=== PATIENT | male | born 1965 | race Caucasian/White ===

== ENCOUNTER 2021-06-10 15:37 | Outpatient (CLI) | payer MEDICAID, SELFPAY ==
--- NOTE | 2021-06-10 15:44 | XR_ITS ---
WS: [id number] Lumbar spine, AP, both obliques, L5-S1 spot, lateral views in flexion, extension and neutral position , 06/10/2021 Clinical Data: M54.41 - Lumbago with sciatica, right side Comparison: None. Findings: There is degenerative arthritic change of all the lumbar vertebral bodies L1-L5 with accompanying dis c space narrowing. There is a dextroscoliosis of the lower lumbar spine. The transverse processes and SI joints are normal. On the oblique films no spondylolysis seen. On fle xion and extension there is limitation of motion but no subluxation. No compression fractures are see n. There are clips in the right upper quadrant from cholecystectomy. There is a large amount of fecal material throughout the colon. XR/XR lumbar spine 6V w f/e [id number] Impression: 1. Degenerative arthritis of the lumbar vertebral bodies L1-L5 with disc narrow ing at all levels. 2. Dextroscoliosis. 3. On flexion and extension there is limitation of motion but no subluxation.
== END 2021-06-10 15:38 | disposition home or self-care (01) ==
LOC: RAD 15:41
PROVIDERS: PCP Family Medicine; Visit Provider Family Medicine
DX: M54.41 Lumbago with sciatica, right side (principal); G89.29 Other chronic pain; M47.816 Spondylosis without myelopathy or radiculopathy, lumbar region
CPT/HCPCS: 72114

== ENCOUNTER 2021-08-05 20:00 | Outpatient (CLI) | payer MEDICAID, SELFPAY | END 2021-08-05 20:01 | disposition home or self-care (01) | LOC: SLEEP 08-06 08:41 | PROVIDERS: PCP Family Medicine; Visit Provider Family Medicine | DX: G47.30 Sleep apnea, unspecified (principal) | CPT/HCPCS: 95810 ==

== ENCOUNTER 2021-08-13 06:43 | Outpatient (CLI) | payer MEDICAID, SELFPAY ==
--- NOTE | 2021-08-13 07:01 | MR_ITS ---
WS: [id number] MRI LUMBAR SPINE NONCONTRAST HISTORY: chronic low back pain COMPARISON: Radiograph 06/10/2021 TECHNIQUE: Sagittal and axial multisequence imaging is submitted. Degenerative RIGHT curvature lumbar spine. Mild straightening of the normal lordosis. Reactive marrow edema at the endplates throughout the lumbar spine but most significant at L3-4. Disc spaces are markedly narrowed and degenerated. Osteophytes with loss of disc space height. No fra cture. Conus terminates normally at L1-2 disc level. L1-L2: Mild annular disc bulging and osteophytic ridging. RIGHT facet joint arthritis and ligamentum flavum hypertrophy. No significant stenosis. L2-L3: Moderate annular disc bulging and osteophytic ridging. Mild ligamentum flavum hypertrophy and facet arthritis. RIGHT foraminal disc protrusion. Factors are resulting in mild central and LEFT fora melina stenosis. Moderate RIGHT subarticular and foraminal stenosis. L3-L4: Diffuse asymmetric disc bulging and osteophytic ridging extending greatest to the RIGHT. Moder ate facet joint arthritis and ligamentum flavum hypertrophy, LEFT greater than RIGHT. Mild central st enosis and bilateral foraminal stenosis. Moderate LEFT subarticular recess stenosis. L4-L5: Diffuse annular disc bulging and osteophytic ridging with facet and ligamentum flavum arthriti s. Small amount of fluid in the RIGHT facet joint. Mild central stenosis. There is mild encroachment into the subarticular recesses and moderate proximal LEFT foraminal stenosis. L5-S1: Mild facet joint arthritis. Small facet joint cyst on the LEFT. MR/MR lumbar spine wo con* [id number] IMPRESSION: 1. Severe degenerative disc disease and facet arthritis throughout the lumbar spine most significant at L3-4 and L4-5. 2. Mild RIGHT curvature lumbar spine. 3. Mild central and LEFT foraminal stenosis with moderate RIGHT subarticular a nd foraminal stenosis at L2-3. Moderate encroachment and deformity of the trave rsing L3 nerve root. 4. Moderate LEFT subarticular recess stenosis at L3-4 with mild central and bi lateral foraminal stenosis. Disc osteophyte encroachment upon the traversing LE FT L4 nerve root. 5. Moderate LEFT foraminal stenosis at L4-5 due to disc and osteophyte and fac et disease.
== END 2021-08-13 06:44 | disposition home or self-care (01) ==
LOC: RAD 06:44
PROVIDERS: PCP Family Medicine; Visit Provider Family Medicine
DX: M51.36 Other intervertebral disc degeneration, lumbar region (principal); M47.816 Spondylosis without myelopathy or radiculopathy, lumbar region; M48.061 Spinal stenosis, lumbar region without neurogenic claudication; M25.78 Osteophyte, vertebrae
CPT/HCPCS: 72148

== ENCOUNTER → 2021-08-20 13:29 | Outpatient (BNVA) | payer MEDICAID, SELFPAY | PROVIDERS: PCP Family Medicine; Referring Provider Family Medicine; Visit Provider Physician Assistant | DX: M47.816 Spondylosis without myelopathy or radiculopathy, lumbar region (principal); M51.36 Other intervertebral disc degeneration, lumbar region | CPT/HCPCS: 99214; 99999 ==

== ENCOUNTER → 2021-09-01 08:44 | Outpatient (BNVA) | payer MEDICAID, SELFPAY | PROVIDERS: PCP Family Medicine; Referring Provider Physician Assistant; Visit Provider Anesthesiology Pain Medicine | DX: G89.29 Other chronic pain (principal); M54.41 Lumbago with sciatica, right side; M51.36 Other intervertebral disc degeneration, lumbar region; M47.816 Spondylosis without myelopathy or radiculopathy, lumbar region; M54.2 Cervicalgia; M79.604 Pain in right leg; M79.605 Pain in left leg; F17.200 Nicotine dependence, unspecified, uncomplicated | CPT/HCPCS: 72050; 99205; 99213; 99999 ==

== ENCOUNTER 2021-09-03 09:29 | Outpatient (RCR) | payer MEDICAID, SELFPAY | END 2021-09-22 23:59 | disposition home or self-care (01) | LOC: SPT 09:29 | PROVIDERS: PCP Family Medicine; Referring Provider Physician Assistant; Visit Provider Physician Assistant | DX: G89.29 Other chronic pain (principal); M54.50 Low back pain, unspecified | CPT/HCPCS: 97161 ==

== ENCOUNTER 2021-09-14 10:48 | Outpatient (CLI) | payer MEDICAID, SELFPAY | END 2021-09-14 10:49 | disposition home or self-care (01) | LOC: HCSOACUTE 11:00 → RT 11:05 | PROVIDERS: PCP Family Medicine; Visit Provider Specialist | DX: H90.12 Conductive hearing loss, unilateral, left ear, with unrestricted hearing on the contralateral side (principal); R00.1 Bradycardia, unspecified | CPT/HCPCS: 93005 ==

== ENCOUNTER 2021-09-23 06:00 | Outpatient (RCR) | payer MEDICAID, SELFPAY | END 2021-10-22 23:59 | disposition home or self-care (01) | LOC: SPT 06:00 | PROVIDERS: PCP Family Medicine; Referring Provider Physician Assistant; Visit Provider Physician Assistant | DX: M54.50 Low back pain, unspecified (principal); G89.29 Other chronic pain | CPT/HCPCS: 97032; 97110; G0283 ==

== ENCOUNTER → 2021-09-24 14:12 | Outpatient (BNVA) | payer MEDICAID, SELFPAY | PROVIDERS: PCP Family Medicine; Visit Provider Anesthesiology Pain Medicine | DX: G89.29 Other chronic pain (principal); M51.36 Other intervertebral disc degeneration, lumbar region; M54.41 Lumbago with sciatica, right side; M79.604 Pain in right leg; M79.605 Pain in left leg | CPT/HCPCS: 64493; 64494; 64495; J3490 ==

== ENCOUNTER 2021-09-29 06:26 | Day surgery (SDC) | payer MEDICAID, SELFPAY ==
[2021-09-28 13:33] VITALS: BMI 22.4
[2021-09-29] VITALS (7 sets, daily range): BP systolic 106–122; BP diastolic 64–82; PULSE 63–70; RESP 16; TEMP 36.2–36.6; O2SAT 92–99
[2021-09-29] MEDS: sodium chloride 0.9% 1,000 ML 30 ML IV (07:16)
--- NOTE | 2021-09-29 08:09 | ANES.PREANE2 ---
Pre-Anesthetic Assessment Height/Weight: Height 1.78 m Weight 70.76 kg Temp Pulse Resp BP Pulse Ox 97.9 F 69 16 106/64 95 09/29/21 06:40 09/29/21 06:40 09/29/21 06:40 09/29/21 06:40 09/29/21 06:40 Preop Diagnosis: hearing loss Operation Date: 09/29/21 08:05 Proposed Procedures p Baha Implant [id number](Left) - Hans Sorto MD Familial anesthetic complications: Per patient he has hx of waking up emotionally labile and agitated Was Beta Anderson taken within 24 hours: N/A Was Clonidine taken within 24 hours: N/A Last intake: Intake Last Liquid Date 09/28/21 Last Liquid Time 22:00 Last Solid Date 09/28/21 Last Solid Time 19:00 Social Tobacco Exam alert, oriented x 3 and regular rate & rhythm b/l lung sounds diminished Airway Submandibular: within normal limits Cervical ROM: within normal limits Mallampati: Class II Comments: Comments: left upper central incisior chipped/missing filling Pulmonary Asthma and Sleep Apnea (does not wear mask, fit study pending ) CV/HEM None reported METS > 4 None reported Hepatic None reported Metabolic None reported Musc/skel Lower Back Pain and Osteoarthritis/DJD Neuropsych None reported Anesthetic Plan ASA status: 3 (56 year old male smoker with SHAHNAZ untreated ) Anesthesia: Anesthesia Evaluation and General Other: We discussed risk and benefits of general anesthesia including PONV, sore throat (sometimes severe), corneal abrasion, positioning and peripheral nerve injuries, life threatening allergic reaction, post operative ICU admission requiring prolonged intubation, stroke, heart attack, , and rare incidences of recall. Patient consents to proceed with general anesthesia. Risk of > 500 ml blood loss (7ml/kg in children): No Medications/Allergies Home Medications Medication Instructions Recorded Confirmed Last Taken Type albuterol sulfate 90 mcg/actuation 2 puff INHALATION QID PRN #8.5 g 05/20/21 09/29/21 Unknown Rx aerosol inhaler (Ventolin HFA) glycopyrrolate 9 mcg-formoterol 2 puff INHALATION BID #10.7 g 05/20/21 09/29/21 09/29/21 Rx 4.8 mcg HFA aerosol inhaler (Bevespi Aerosphere) acetaminophen 500 mg tablet 500 mg PO Q6H PRN 09/01/21 09/29/21 09/28/21 History (Tylenol Extra Strength) ibuprofen 200 mg tablet 200 mg PO Q6H PRN 09/01/21 09/29/21 09/27/21 History gabapentin 300 mg capsule See Rx Instructions .ROUTE 09/04/21 09/29/21 09/28/21 Rx .COMPLEX #90 cap MULLIEN 1 tab PO DAILY 09/24/21 09/27/21 History baclofen 10 mg tablet See Rx Instructions .ROUTE 09/24/21 09/29/21 09/28/21 Rx .COMPLEX #30 tab Allergies Allergy/AdvReac Type Severity Reaction Status Date / Time iodine Allergy Unknown Unknown Verified 09/28/21 13:29 morphine Allergy Unknown Unknown Verified 09/28/21 13:29 amoxicillin [From Augmentin] Allergy ALGY-Rash Verified 09/29/21 06:48 aspirin Allergy Unknown Verified 09/29/21 06:48 clavulanic acid Allergy ALGY-Rash Verified 09/29/21 06:48 [From Augmentin] Current Medications Generic Name Dose Route Start Last Admin Trade Name Freq PRN Reason Stop Dose Admin Sodium Chloride 1,000 mls @ 30 mls/hr 09/29/21 06:45 09/29/21 07:16 Sodium Chloride 0.9% IV 09/30/21 06:44 30 mls/hr .Q24H DANIELLE Administration PFSH Anesthesia Medical History Asthma Chronic back pain greater than 3 months duration Social History Smoking and tobacco status: current every day smoker Data Anesthesia Cardiac Studies: No Data to Display
--- NOTE | 2021-09-29 08:34 | W.PM.OPSUD ---
Surgery/Procedure H&P Update DATE OF PROCEDURE: September 29, 2021 DATE H&P PERFORMED: 09/14/21 PREOP DIAGNOSIS: hearing loss PRIMARY INDICATION FOR PROCEDURE: Conductive hearing loss, left ear PLANNED PROCEDURE: Operation Date: 09/29/21 08:05 Proposed Procedures p Baha Implant [id number](Left) - Hans Sorto MD
[2021-09-29] MEDS: neomycin-poly-bacitracin oint 28 gm 1 APPLIC TOPICAL (09:16)
--- NOTE | 2021-09-29 09:38 | P.OP_ITS ---
Operative Report Date of procedure: September 29, 2021 Pre-op diagnosis: Preop Diagnosis hearing loss Post-op diagnosis: same Post-op findings: Normal left mastoid exam Procedure done: Left bone anchored hearing aid abutment placement Implants: Left bone anchored hearing aid abutment/fixture mount Specimens removed/disposition: None Pathology: none sent Surgeon: Hans Sorto Foreign Service Teacher: Nilesh Pinto Anesthesia: General Estimated blood loss (mL): 2 IV fluids (mL): 800 Complications: None Findings: Normal left mastoid exam Condition: stable Disposition: PACU Brief History: 56 yo wm with a h/o severe conductive hearing loss in the left ear who desires surgical therapy. Procedure: The patient was identified preoperatively and was taken to the operating where h e was placed on the operating table in the supine position. Anesthesia was obtained with general endotracheal anesthesia and the table was then turned 90 degrees to patient's left. The patient's head was turned to the right, and he was prepped and draped on the left in the usual sterile fashion. Prior to prepping the patient, the patient's left postauricular hair was shaved. Once prepped, the surgical indicator was used to edie the left postauricular surgical site. A needle was then used to measure the skin thickness at the implant site, and then the surgical site was injected with 2 cc of 1% lidocaine with 1-100,000 epinephrine. A punch biopsy tool was then used to remove 5 mm wrangell of tissue at the implant site and hemostasis was achieved with electrocautery. The raspatorium and surgical microscope was used to remove the periosteum from the mastoid cortex over the implant site. At this point using the high-speed drill, a 4 mm hole was used to drill into the outer cortex of the left mastoid bone while copiously irrigating the drill. The depth of the hole was inspected and then the implant was placed with the drill set at 20 N centimeters. Once the implant was in the appropriate site, it was hand tightened, and then a dressing was placed over the wound with triple antibiotic ointment over the implant. At this point the procedure was terminated and control of the patient was returned to anesthesia where he underwent an uneventful reversal of anesthesia and extubation and was taken to the recovery room in stable condition. There were no operative or anesthetic complications.
--- NOTE | 2021-09-29 14:34 | ANE.PACU2 ---
Inpatient post-anesthesia follow up: Airway intact: Yes Vital signs: Temperature 97.2 F Pulse Rate 63 Respiratory Rate 16 Blood Pressure 115/75 Pulse Oximetry 96 Oxygen Delivery Me thod Room Air Oxygen Flow Rate 6 Fraction of Inspir ed Oxygen Hydration adequate: Yes Nausea and vomiting: No Pain level: 1 Mental status: Baseline
== END 2021-09-29 10:30 | disposition home or self-care (01) ==
PROVIDERS: PCP Family Medicine; Visit Provider Specialist
PROC: (CPT 69710; principal; 2021-09-29 07:55)
DX: H91.92 Unspecified hearing loss, left ear (principal); F17.210 Nicotine dependence, cigarettes, uncomplicated; G47.33 Obstructive sleep apnea (adult) (pediatric)
CPT/HCPCS: 69714; 12345; J1100; J2405; J2704; J3010; J3490; J7030

== ENCOUNTER → 2021-10-01 08:13 | Outpatient (BNVA) | payer MEDICAID, SELFPAY | PROVIDERS: PCP Family Medicine; Visit Provider Physician Assistant | DX: M54.41 Lumbago with sciatica, right side (principal); M47.816 Spondylosis without myelopathy or radiculopathy, lumbar region; M51.36 Other intervertebral disc degeneration, lumbar region | CPT/HCPCS: 99213; 99214 ==

== ENCOUNTER → 2021-10-14 14:01 | Outpatient (BNVA) | payer MEDICAID, SELFPAY | PROVIDERS: PCP Family Medicine; Visit Provider Anesthesiology Pain Medicine | DX: G89.29 Other chronic pain (principal); M54.41 Lumbago with sciatica, right side; M47.816 Spondylosis without myelopathy or radiculopathy, lumbar region | CPT/HCPCS: 64493; 64494; 64495 ==

== ENCOUNTER 2021-10-23 06:00 | Outpatient (RCR) | payer MEDICAID, SELFPAY | END 2021-11-22 23:59 | disposition home or self-care (01) | LOC: SPT 06:00 | PROVIDERS: PCP Family Medicine; Referring Provider Physician Assistant; Visit Provider Physician Assistant | DX: M54.59 Other low back pain (principal) | CPT/HCPCS: 97032; 97110 ==

== ENCOUNTER → 2021-11-05 10:01 | Outpatient (BNVA) | payer MEDICAID, SELFPAY | PROVIDERS: PCP Family Medicine; Visit Provider Anesthesiology Pain Medicine | DX: G89.29 Other chronic pain (principal); M54.41 Lumbago with sciatica, right side; M47.816 Spondylosis without myelopathy or radiculopathy, lumbar region; M51.36 Other intervertebral disc degeneration, lumbar region; M79.604 Pain in right leg; M79.605 Pain in left leg; Z79.891 Long term (current) use of opiate analgesic | CPT/HCPCS: 99214 ==

== ENCOUNTER → 2021-11-24 13:52 | Outpatient (BNVA) | payer MEDICAID, SELFPAY | PROVIDERS: PCP Family Medicine; Visit Provider Anesthesiology Pain Medicine | DX: F17.200 Nicotine dependence, unspecified, uncomplicated (principal); Z79.891 Long term (current) use of opiate analgesic; G89.29 Other chronic pain; M54.41 Lumbago with sciatica, right side; M47.816 Spondylosis without myelopathy or radiculopathy, lumbar region | CPT/HCPCS: 64635; 64636 ==

== ENCOUNTER → 2021-12-08 12:59 | Outpatient (BNVA) | payer MEDICAID, SELFPAY | PROVIDERS: PCP Family Medicine; Visit Provider Anesthesiology Pain Medicine | DX: G89.29 Other chronic pain (principal); M47.816 Spondylosis without myelopathy or radiculopathy, lumbar region; M54.41 Lumbago with sciatica, right side | CPT/HCPCS: 64635; 64636; J1030 ==

== ENCOUNTER → 2021-12-22 08:56 | Outpatient (BNVA) | payer MEDICAID, SELFPAY | PROVIDERS: PCP Family Medicine; Visit Provider Anesthesiology Pain Medicine | DX: G89.29 Other chronic pain (principal); M54.41 Lumbago with sciatica, right side; M47.816 Spondylosis without myelopathy or radiculopathy, lumbar region; M51.36 Other intervertebral disc degeneration, lumbar region; M79.604 Pain in right leg; M79.605 Pain in left leg; F17.200 Nicotine dependence, unspecified, uncomplicated | CPT/HCPCS: 99213; 99214 ==

== ENCOUNTER → 2022-06-01 16:18 | Outpatient (BNVA) | payer MEDICAID, SELFPAY | PROVIDERS: PCP Family Medicine; Visit Provider Family Medicine | DX: R53.83 Other fatigue (principal); G47.30 Sleep apnea, unspecified | CPT/HCPCS: 80053; 82306; 82607; 83540; 84403; 84443; 85025 ==

== ENCOUNTER → 2022-11-15 09:21 | Outpatient (BNVA) | payer MEDICAID, SELFPAY | PROVIDERS: PCP Family Medicine; Visit Provider Family Medicine | DX: R05.9 Cough, unspecified (principal); J20.9 Acute bronchitis, unspecified | CPT/HCPCS: 87426 ==

== ENCOUNTER 2022-12-24 13:10 | Emergency (ER) | payer MEDICAID, SELFPAY ==
[2022-12-24 13:16] VITALS: BP 117/75; PULSE 62; RESP 16; O2SAT 94
--- NOTE | 2022-12-24 13:22 | XR_ITS ---
WS: [id number] Exam: XR sacrum coccyx min 2V [id number] Date/Time of Exam: 12/24/2022 1:22 PM Reason For Exam: fall No obvious sacrococcygeal fracture. Mild DJD of the SI joints. Pelvis and hips are intact. IMPRESSION: 1. No sacrococcygeal fracture or other significant finding.
--- NOTE | 2022-12-24 13:22 | XR_ITS ---
WS: [id number] Exam: XR shoulder RT min 2V* [id number] Date/Time of Exam: 12/24/2022 1:22 PM Reason For Exam: fall pain No fracture or dislocation noted. Minimal degenerative changes at the AC joint and glenohumeral joint . Normal soft tissues. IMPRESSION1. Mild degenerative changes. No fracture or dislocation.
--- NOTE | 2022-12-24 13:33 | W.ED.FALL ---
HPI - Fall General: Chief Complaint: Fall Stated Complaint: fall with tail bone Time Seen by Provider: 12/24/22 13:11 History of Present Illness: Presents to the ER complaints of fall with tailbone pain and right shoulder pain. Patient said he is getting into the bed of his truck when he thinks his foot slipped and he landed on the ground on his tailbone and tried to catch himself with his right arm. Patient rates his pain currently a 5 out of 10. Patient did receive 100 mcg of fentanyl and 4 mg Zofran on route by EMS. Patient denies hitting his head any loss of consciousness or other neurologic deficits. Review of Systems General: Reports: 10 or more systems reviewed and unremarkable except in HPI and below PFSH ED PFSH: Medical History Asthma Chronic back pain greater than 3 months duration Surgical History History of ear surgery Hx of cholecystectomy Hx of sinus surgery Hx of vasectomy Social History Smoking and tobacco status: current every day smoker cigarettes Packs smoked per day: 1 Alcohol intake: never Substance/Drug Use: never Physical Exam Const: COMMON NORMALS: no acute distress, average body habitus, patient oriented x3, no limitations, healthy appearing, alert and well nourished HENMT: COMMON NORMALS: normocephalic, atraumatic, hearing grossly normal bilaterally, external ears normal, Normal external nose present and moist oral mucous membranes HEAD & SCALP: normocephalic and atraumatic NOSE: Normal external nose present EXTERNAL EAR: Yes external ears normal Neck/C-Spine: COMMON NORMALS: full ROM, no lymphadenopathy, supple, no meningeal signs, no JVD and Thyroid normal THYROID: Thyroid normal Chest: COMMONS NORMALS: normal inspection of the chest and normal palpation of entire chest wall Resp: COMMON NORMALS: normal respiratory effort, No retractions, No use of accessory muscles and clear to auscultation bilaterally AUSCULTATION: clear to auscultation bilaterally Cardio: COMMON NORMALS: no JVD, regular rate, regular rhythm, S1 normal heart sound present, S2 normal heart sound present, No gallops present (Cardio), No clicks present (Cardio), No murmurs present (Cardio) and No rub (Cardio) RATE: regular rate RHYTHM: regular rhythm HEART SOUNDS: S1 normal heart sound present and S2 normal heart sound present GI: COMMON NORMALS: Normal to inspection, nondistended, normoactive bowel sounds present, Soft to palpation, non-tender, No hepatosplenomegaly present and no masses PALPATION: Yes Soft to palpation and Yes No hepatosplenomegaly present : COMMON NORMALS: Yes no CVA tenderness BLADDER/KIDNEY EXAM: Yes no CVA tenderness Back/Pelvis: COMMON NORMALS: no CVA tenderness Neuro: COMMON NORMALS: patient oriented x3 SENSORIUM/ORIENTATION: Yes alert MENINGEAL SIGNS: Yes no meningeal signs Course Vital Signs: Vital signs: Vital Signs Pulse Rate 62 12/24/22 13:16 Respiratory Rate 16 12/24/22 13:16 Blood Pressure 117/75 12/24/22 13:16 Pulse Oximetry 94 12/24/22 13:16 Oxygen Delivery Me thod Room Air 12/24/22 13:16 MDM - Fall Medical Decision Making To the ER after following which trying to get into bed of his tailgate. Patient complains of right shoulder pain and tailbone pain. Both of which were x-rayed both which were negative. Patient was given 100 mcg of fentanyl and 4 mg Zofran on route per EMS and is his pain is drastically improved. Patient will be discharged on tramadol and should follow-up with his PCP within the next week or sooner as needed. Differential Diagnosis Unlikely syncope, dislocation of shoulder region, fracture of wrist, compression fracture, concussion with loss of consciousness or concussion without loss of consciousness Medical Records I reviewed the patient's medical records. Lab Data I reviewed the patient's lab results. Discharge Plan Discharge Patient Disposition: Home Clinical Impression: Acute pain of right shoulder, Pain in sacrum Condition: Stable Prescriptions: New tramadol 50 mg tablet 50 mg PO TID PRN (Reason: pain) Qty: 14 0RF No Action (DME) Tens Unit See Rx Instructions .Route .MEDSUPPLY Qty: 1 0RF Rx Instructions: As directed ibuprofen 200 mg tablet 200 mg PO Q6H PRN (Reason: Pain) acetaminophen [Tylenol Extra Strength] 500 mg tablet 500 mg PO Q6H PRN (Reason: Pain) MULLIEN 1 tab PO DAILY albuterol sulfate [Ventolin HFA] 90 mcg/actuation HFA aerosol inhaler See Rx Instructions .ROUTE .COMPLEX Qty: 54 0RF Dose Instruction: inhale TWO puffs into lungs FOUR TIMES DAILY NEEDED FOR SHORTNESS OF BREATH OR wheezing Rx Instructions: inhale TWO puffs into lungs FOUR TIMES DAILY NEEDED FOR SHORTNESS OF BREATH OR wheezing (DME) cpap auto titration with supplies See Rx Instructions .Route .MEDSUPPLY Qty: 1 0RF Rx Instructions: As directed garlic 100 mg Tablet 100 mg PO DAILY Vitamin D3 50 mcg (2,000 unit) Capsule 50 mcg PO DAILY turmeric 400 mg Capsule 400 mg PO DAILY vitamin K2 45 mcg Capsule 45 mcg PO DAILY Magnesium Complex 300 mg magnesium Tablet 300 mg PO DAILY potassium citrate 99 mg Capsule 99 mg PO DAILY Blue Poppy Seed 2 cap PO DAILY baclofen 10 mg tablet 10 mg PO BID PRN (Reason: Spasms) gabapentin 300 mg capsule 300 mg PO TID PRN (Reason: Muscle Pain) ergocalciferol (vitamin D2) 1,250 mcg (50,000 unit) capsule 50,000 unit PO Q7D Rx Instructions: ON TUESDAY Bevespi Aerosphere 9-4.8 mcg HFA aerosol inhaler 2 inh inhalation BID Discharge Orders: Discharge ED (Routine); Ordered 12/24/22 Ordered By: Víctor Rowe Referrals: Areli Jaquez MD [Primary Care Provider] - Patient Instructions: Coccyx Injury (ED), Shoulder Pain (ED) Activity Restrictions/Additional Instructions: Please take your pain medicine as directed as needed. Please follow-up with your family practice physician in the next 7 days or sooner as needed for further evaluation and treatment. Coding Level of Care Code ED [employer] for [employer]
[2022-12-24 15:41] VITALS: BP 117/75; PULSE 62; RESP 16; O2SAT 94
== END 2022-12-24 15:02 | disposition home or self-care (01) ==
PROVIDERS: Emergency Provider Emergency Medicine; PCP Family Medicine
DX: M54.50 Low back pain, unspecified (principal); M25.511 Pain in right shoulder; F17.210 Nicotine dependence, cigarettes, uncomplicated
CPT/HCPCS: 72220; 73030; 99284

== ENCOUNTER → 2024-03-13 09:32 | Outpatient (BNVA) | payer MEDICAID, SELFPAY | PROVIDERS: PCP Nurse Practitioner Family; Visit Provider Nurse Practitioner Family | DX: J45.909 Unspecified asthma, uncomplicated (principal); Z12.5 Encounter for screening for malignant neoplasm of prostate | CPT/HCPCS: 80053; 80061; 82306; 84443; 85025; G0103 ==